=== PATIENT | female | born 1980 | race Caucasian/White ===

== ENCOUNTER 2021-03-10 16:38 | Inpatient (IN) | payer OTHER ==
[~2021-03-10] VITALS: Ht 177.8 cm; Wt 93.4 kg
[2021-03-10 17:45] LABS: GLUCOSE,POINT OF CARE 371 MG/DL (70-110)
[2021-03-10] MEDS ORDERED: 0.9% SODIUM CHLORIDE 10 ML SYRINGE IVP PRN (18:00)
[2021-03-10] MEDS ORDERED: LISI-892 PO (18:13)
[2021-03-10] MEDS ORDERED: INSLAN SQ (18:13)
[2021-03-10] MEDS ORDERED: GABA-1181 PO (18:13)
[2021-03-10] MEDS ORDERED: METF-960 PO (18:13)
[2021-03-10 18:20] LABS: EOSINOPHILS % (AUTO) 2.5 % (1.0-6.0); HEMATOCRIT 30.6 % (36-46); HEMOGLOBIN 9.7 g/dL (12.0-16.0); LYMPHOCYTES % (AUTO) 25.3 % (22.0-44.0); MEAN CORPUSCULAR HEMOGLOBIN 23.5 pg (26.0-34.0); MEAN CORPUSCULAR HGB CONC 31.6 G/dL (31.0-37.0); MEAN CORPUSCULAR VOLUME 74 fL (80-100); MONOCYTES # (AUTO) 0.6 K/uL (0.1-1.0); MONOCYTES % (AUTO) 7.2 % (2.0-9.0); NEUTROPHILS # (AUTO) 5.2 K/uL (1.8-7.7); PLATELET COUNT (AUTO) 325 K/uL (150-450); RED BLOOD CELL COUNT(AUTO) 4.11 MIL/uL (4.00-5.20); RED CELL DISTRIBUTION WIDTH 15.7 % (11.5-14.5)
[2021-03-10 18:21] LABS: COVID AG,FIA SOURCE NASOPHARYNGEAL
[2021-03-10 18:27] LABS: CALCIUM, TOTAL 8.8 mg/dL (8.8-10.5); CREATININE 1.23 mg/dL (0.60-1.30); POTASSIUM 3.9 mmol/L (3.5-5.1)
[2021-03-10 18:32] LABS: PROTHROMBIN TIME 10.8 SEC (9.4-11.6)
[2021-03-10 18:33] LABS: ALBUMIN 3.1 g/dL (3.4-5.0); BILIRUBIN,TOTAL 0.2 mg/dL (0.1-1.0); TOTAL PROTEIN, SERUM 8.7 g/dL (6.4-8.2)
[2021-03-10] MEDS ORDERED: HYDROCODONE/ACETAMINOPHEN 10-325 MG TABLET PO ONE (19:15)
[2021-03-10 19:32] LABS: LACTIC ACID 0.8 mmol/L (0.4-2.0)
[2021-03-10] MEDS ORDERED: PIPERACILLIN/TAZO 3.375 GM/D5W 50 ML IV ONE (20:15)
[2021-03-10] MEDS ORDERED: VANCOMYCIN HCL 1 GM/D5% WATER 200 ML IV ONE (20:15)
[2021-03-10] MEDS ORDERED: ONDANSETRON HCL 4 MG/2 ML VIAL IVP PRN ×2 (20:45)
[2021-03-10] MEDS ORDERED: DEXTROSE 50%-WATER 25 GM/50 ML SYRINGE IVP PRN (20:45)
[2021-03-10] MEDS ORDERED: ACETAMINOPHEN 325 MG TABLET PO PRN (20:45)
[2021-03-10] MEDS: INSULIN GLARGINE,HUM.REC.ANLOG 100 UNITS/ML SQ SCH ×2 (21:00→22:34)
[2021-03-10 21:04] LABS: % IRON SATURATION 8.5 % (22-44)
[2021-03-10] MEDS: SODIUM CHLORIDE 0.9% 2,850 ML IV SCH (22:14)
[2021-03-10] MEDS: INSULIN LISPRO 100 UNITS/ML SQ PRN (22:35)
[2021-03-10 22:45] VITALS: BP 101/53
[2021-03-10 22:51] LABS: GLUCOMETER DEV NAME(LOC) 6N.1; GLUCOSE,POINT OF CARE 399 MG/DL (70-110)
[2021-03-10] MEDS: MORPHINE SULFATE 2 MG/ML SYRINGE IVP PRN (23:25)
[2021-03-11] MEDS: CLINDAMYCIN 600 MG/D5% WATER 50 ML IV SCH ×3 (00:10→16:49)
[2021-03-11] MEDS: HEPARIN SODIUM,PORCINE 5,000 UNITS/ML VIAL SQ SCH ×4 (00:10→23:23)
[2021-03-11] MEDS ORDERED: VANCOMYCIN HCL 1 GM/D5% WATER 200 ML IV ONE (01:30)
[2021-03-11 02:14] LABS: GLUCOMETER DEV NAME(LOC) 6S.1; GLUCOSE,POINT OF CARE 168 MG/DL (70-110)
[2021-03-11] MEDS: PIPERACILLIN/TAZO 3.375 GM/D5W 50 ML IV SCH ×4 (04:07→22:12)
[2021-03-11 04:45] VITALS: BP 113/71
[2021-03-11] MEDS: MORPHINE SULFATE 2 MG/ML SYRINGE IVP PRN ×5 (04:57→19:59)
[2021-03-11 06:39] LABS: BASOPHILS % (AUTO) 1.2 % (0.0-2.0); EOSINOPHILS % (AUTO) 4.5 % (1.0-6.0); HEMATOCRIT 27.4 % (36-46); HEMOGLOBIN 8.7 g/dL (12.0-16.0); LYMPHOCYTES # (AUTO) 2.4 K/uL (1.0-4.8); LYMPHOCYTES % (AUTO) 34.3 % (22.0-44.0); MEAN CORPUSCULAR HEMOGLOBIN 23.7 pg (26.0-34.0); MEAN CORPUSCULAR HGB CONC 31.9 G/dL (31.0-37.0); MEAN CORPUSCULAR VOLUME 74 fL (80-100); MONOCYTES # (AUTO) 0.6 K/uL (0.1-1.0); MONOCYTES % (AUTO) 8.5 % (2.0-9.0); NEUTROPHILS # (AUTO) 3.6 K/uL (1.8-7.7); NEUTROPHILS % (AUTO) 51.5 % (40.0-70.0); PLATELET COUNT (AUTO) 295 K/uL (150-450); RED BLOOD CELL COUNT(AUTO) 3.69 MIL/uL (4.00-5.20); RED CELL DISTRIBUTION WIDTH 15.5 % (11.5-14.5)
[2021-03-11 06:48] LABS: GLUCOMETER DEV NAME(LOC) 6S.1; GLUCOSE,POINT OF CARE 204 MG/DL (70-110)
[2021-03-11 07:11] LABS: ALBUMIN 2.4 g/dL (3.4-5.0); BILIRUBIN,TOTAL 0.3 mg/dL (0.1-1.0); CALCIUM, TOTAL 8.1 mg/dL (8.8-10.5); CREATININE 1.07 mg/dL (0.60-1.30); POTASSIUM 3.8 mmol/L (3.5-5.1); TOTAL PROTEIN, SERUM 7.1 g/dL (6.4-8.2)
[2021-03-11 07:30] VITALS: BP 115/64
[2021-03-11] MEDS: ACETAMINOPHEN 325 MG TABLET PO PRN (08:19)
[2021-03-11] MEDS: VANCOMYCIN HCL 1 GM/D5% WATER 200 ML IV SCH ×2 (09:11→19:59)
[2021-03-11] MEDS ORDERED: GADOTERATE MEGLUMINE 10 MMOL/20 ML VIAL IVP ONE (09:39)
[2021-03-11] MEDS: INSULIN LISPRO 100 UNITS/ML SQ PRN ×3 (11:44→21:33)
[2021-03-11 14:33] LABS: GLUCOMETER DEV NAME(LOC) 6S.1; GLUCOSE,POINT OF CARE 207 MG/DL (70-110)
[2021-03-11 15:40] VITALS: BP 113/68
[2021-03-11 17:30] LABS: GLUCOMETER DEV NAME(LOC) 6S.1; GLUCOSE,POINT OF CARE 283 MG/DL (70-110)
[2021-03-11 19:02] LABS: C-REACTIVE PROTEIN QUANT 2.58 mg/dL (0.00-0.30)
[2021-03-11 20:25] VITALS: BP 114/58
[2021-03-11] MEDS: GABAPENTIN 400 MG CAPSULE PO SCH (21:27)
[2021-03-11] MEDS: INSULIN GLARGINE,HUM.REC.ANLOG 100 UNITS/ML SQ SCH (21:33)
[2021-03-11] MEDS: SODIUM CHLORIDE 0.9% 2,850 ML IV SCH (22:16)
[2021-03-11 22:22] LABS: GLUCOMETER DEV NAME(LOC) 6N.1; GLUCOSE,POINT OF CARE 299 MG/DL (70-110)
[2021-03-12] MEDS: CLINDAMYCIN 600 MG/D5% WATER 50 ML IV SCH ×2 (00:01→08:05)
[2021-03-12 03:01] VITALS: BP 131/55
[2021-03-12] MEDS: MORPHINE SULFATE 2 MG/ML SYRINGE IVP PRN ×4 (03:06→23:28)
[2021-03-12] MEDS: PIPERACILLIN/TAZO 3.375 GM/D5W 50 ML IV SCH (03:06)
[2021-03-12 05:09] LABS: GLUCOMETER DEV NAME(LOC) 6S.1; GLUCOSE,POINT OF CARE 228 MG/DL (70-110)
[2021-03-12 06:36] LABS: ANION GAP 7 mmol/L (8-16); CALCIUM, TOTAL 8.4 mg/dL (8.8-10.5); CARBON DIOXIDE 27 mmol/L (22-29); CHLORIDE 102 mmol/L (98-107); CREATININE 0.99 mg/dL (0.60-1.30); GLOMERULAR FILTR. RATE CALC > 60 mL/min (>60); GLUCOSE,RANDOM 215 mg/dL (70-110); POTASSIUM 4.1 mmol/L (3.5-5.1); SODIUM SERUM 136 mmol/L (136-145); UREA NITROGEN, BLOOD 18 mg/dL (7-18); VANCOMYCIN,RANDOM 23.6 mcg/mL (25.0-50.0)
[2021-03-12 06:52] LABS: GLUCOMETER DEV NAME(LOC) 6N.1; GLUCOSE,POINT OF CARE 204 MG/DL (70-110)
[2021-03-12] MEDS: HEPARIN SODIUM,PORCINE 5,000 UNITS/ML VIAL SQ SCH ×4 (08:00→23:28)
[2021-03-12] MEDS: GABAPENTIN 400 MG CAPSULE PO SCH ×2 (08:06→20:49)
[2021-03-12] MEDS: MUPIROCIN CALCIUM 2% 22 GM OINTMENT TP SCH (08:07)
[2021-03-12 08:38] VITALS: BP 98/45
[2021-03-12] MEDS ORDERED: *CLINICAL-MEROPENEM DOSING CLINICAL ONE (09:00)
[2021-03-12] MEDS: MEROPENEM 1 GM in SODIUM CHLORIDE 0.9% 100 ML IV SCH ×3 (09:16→22:19)
[2021-03-12] MEDS: INSULIN LISPRO 100 UNITS/ML SQ PRN ×3 (11:56→20:50)
[2021-03-12 13:09] LABS: GLUCOMETER DEV NAME(LOC) 6S.1; GLUCOSE,POINT OF CARE 188 MG/DL (70-110)
[2021-03-12] MEDS: HYDROCODONE/ACETAMINOPHEN 5-325 MG TABLET PO PRN ×2 (16:01→22:09)
[2021-03-12 19:34] LABS: GLUCOMETER DEV NAME(LOC) 6S.1; GLUCOSE,POINT OF CARE 255 MG/DL (70-110)
[2021-03-12 19:49] VITALS: BP 104/57
[2021-03-12] MEDS: INSULIN GLARGINE,HUM.REC.ANLOG 100 UNITS/ML SQ SCH (20:49)
[2021-03-12 22:42] LABS: GLUCOMETER DEV NAME(LOC) 6N.1; GLUCOSE,POINT OF CARE 239 MG/DL (70-110)
[2021-03-13] MEDS: MORPHINE SULFATE 2 MG/ML SYRINGE IVP PRN ×4 (03:04→19:57)
[2021-03-13 05:17] VITALS: BP 102/59
[2021-03-13 06:03] LABS: CALCIUM, TOTAL 8.4 mg/dL (8.8-10.5); CREATININE 1.11 mg/dL (0.60-1.30); POTASSIUM 4.4 mmol/L (3.5-5.1)
[2021-03-13] MEDS: INSULIN LISPRO 100 UNITS/ML SQ PRN ×4 (06:07→21:56)
[2021-03-13 07:43] LABS: GLUCOMETER DEV NAME(LOC) 6S.1; GLUCOSE,POINT OF CARE 218 MG/DL (70-110)
[2021-03-13 09:04] VITALS: BP 95/46
[2021-03-13] MEDS: HEPARIN SODIUM,PORCINE 5,000 UNITS/ML VIAL SQ SCH ×2 (09:26→16:06)
[2021-03-13] MEDS: MEROPENEM 1 GM in SODIUM CHLORIDE 0.9% 100 ML IV SCH ×2 (09:26→17:19)
[2021-03-13] MEDS: MUPIROCIN CALCIUM 2% 22 GM OINTMENT TP SCH (09:27)
[2021-03-13] MEDS: GABAPENTIN 400 MG CAPSULE PO SCH ×2 (09:27→19:45)
[2021-03-13] MEDS: HYDROCODONE/ACETAMINOPHEN 5-325 MG TABLET PO PRN ×3 (09:45→23:07)
[2021-03-13 09:54] LABS: BASOPHILS % (AUTO) 0.9 % (0.0-2.0); EOSINOPHILS % (AUTO) 3.1 % (1.0-6.0); HEMATOCRIT 29.5 % (36-46); HEMOGLOBIN 9.2 g/dL (12.0-16.0); LYMPHOCYTES # (AUTO) 2.6 K/uL (1.0-4.8); MEAN CORPUSCULAR HEMOGLOBIN 23.5 pg (26.0-34.0); MEAN CORPUSCULAR HGB CONC 31.2 G/dL (31.0-37.0); MEAN CORPUSCULAR VOLUME 75 fL (80-100); MONOCYTES # (AUTO) 0.4 K/uL (0.1-1.0); MONOCYTES % (AUTO) 6.8 % (2.0-9.0); NEUTROPHILS # (AUTO) 2.7 K/uL (1.8-7.7); NEUTROPHILS % (AUTO) 45.2 % (40.0-70.0); PLATELET COUNT (AUTO) 280 K/uL (150-450); RED BLOOD CELL COUNT(AUTO) 3.92 MIL/uL (4.00-5.20); RED CELL DISTRIBUTION WIDTH 15.6 % (11.5-14.5)
[2021-03-13 12:28] LABS: GLUCOMETER DEV NAME(LOC) 6S.1; GLUCOSE,POINT OF CARE 185 MG/DL (70-110)
[2021-03-13 18:17] LABS: GLUCOMETER DEV NAME(LOC) 6S.1; GLUCOSE,POINT OF CARE 217 MG/DL (70-110)
[2021-03-13 19:48] VITALS: BP 122/74
[2021-03-13] MEDS: INSULIN GLARGINE,HUM.REC.ANLOG 100 UNITS/ML SQ SCH (21:55)
[2021-03-14] MEDS: MEROPENEM 1 GM in SODIUM CHLORIDE 0.9% 100 ML IV SCH ×4 (00:27→23:26)
[2021-03-14] MEDS: HEPARIN SODIUM,PORCINE 5,000 UNITS/ML VIAL SQ SCH ×4 (00:27→23:26)
[2021-03-14] MEDS: MELATONIN 3 MG TABLET PO PRN ×2 (00:27→22:45)
[2021-03-14] MEDS: MORPHINE SULFATE 2 MG/ML SYRINGE IVP PRN ×5 (00:36→20:39)
[2021-03-14 00:40] VITALS: BP 112/62
[2021-03-14 05:00] VITALS: BP 100/59
[2021-03-14 05:37] LABS: GLUCOMETER DEV NAME(LOC) 6N.1; GLUCOSE,POINT OF CARE 314 MG/DL (70-110)
[2021-03-14] MEDS: INSULIN LISPRO 100 UNITS/ML SQ PRN ×4 (06:12→21:34)
[2021-03-14] MEDS: HYDROCODONE/ACETAMINOPHEN 5-325 MG TABLET PO PRN ×4 (06:16→23:27)
[2021-03-14] MEDS: GABAPENTIN 400 MG CAPSULE PO SCH ×2 (08:46→20:38)
[2021-03-14] MEDS: MUPIROCIN CALCIUM 2% 22 GM OINTMENT TP SCH (09:00)
[2021-03-14 09:25] LABS: GLUCOMETER DEV NAME(LOC) 6S.1; GLUCOSE,POINT OF CARE 179 MG/DL (70-110)
[2021-03-14] MEDS ORDERED: MAGNESIUM HYDROXIDE SUSPENSION 30 ML UDCUP PO PRN (10:00)
[2021-03-14] MEDS: DOCUSATE SODIUM 100 MG CAPSULE PO SCH ×2 (10:09→20:38)
[2021-03-14 11:56] LABS: GLUCOMETER DEV NAME(LOC) 6S.1; GLUCOSE,POINT OF CARE 154 MG/DL (70-110)
[2021-03-14 15:40] VITALS: BP 118/67
[2021-03-14] MEDS ORDERED: VANCOMYCIN HCL 1.5 GM in DEXTROSE 5%-WATER 250 ML IV ONE (18:00)
[2021-03-14 19:52] VITALS: BP 107/69
[2021-03-14 20:18] LABS: GLUCOMETER DEV NAME(LOC) 6N.1; GLUCOSE,POINT OF CARE 203 MG/DL (70-110)
[2021-03-14] MEDS: INSULIN GLARGINE,HUM.REC.ANLOG 100 UNITS/ML SQ SCH (21:32)
[2021-03-14 21:54] LABS: GLUCOMETER DEV NAME(LOC) 6S.1; GLUCOSE,POINT OF CARE 197 MG/DL (70-110)
[2021-03-15 04:10] VITALS: BP 100/61
[2021-03-15] MEDS: MORPHINE SULFATE 2 MG/ML SYRINGE IVP PRN ×3 (04:10→19:39)
[2021-03-15 04:37] LABS: GLUCOMETER DEV NAME(LOC) 6N.1; GLUCOSE,POINT OF CARE 223 MG/DL (70-110)
[2021-03-15] MEDS: HYDROCODONE/ACETAMINOPHEN 5-325 MG TABLET PO PRN ×4 (06:10→23:13)
[2021-03-15] MEDS: INSULIN LISPRO 100 UNITS/ML SQ PRN ×4 (06:15→19:38)
[2021-03-15 06:57] LABS: ANION GAP 5 mmol/L (8-16); CALCIUM, TOTAL 8.5 mg/dL (8.8-10.5); CARBON DIOXIDE 30 mmol/L (22-29); CHLORIDE 99 mmol/L (98-107); CREATININE 0.87 mg/dL (0.60-1.30); GLOMERULAR FILTR. RATE CALC > 60 mL/min (>60); GLUCOSE,RANDOM 261 mg/dL (70-110); POTASSIUM 4.2 mmol/L (3.5-5.1); SODIUM SERUM 134 mmol/L (136-145); UREA NITROGEN, BLOOD 20 mg/dL (7-18)
[2021-03-15] MEDS: HEPARIN SODIUM,PORCINE 5,000 UNITS/ML VIAL SQ SCH ×3 (07:16→23:13)
[2021-03-15] MEDS: VANCOMYCIN HCL 1.25 GM in DEXTROSE 5%-WATER 250 ML IV SCH ×2 (07:16→19:37)
[2021-03-15 07:20] VITALS: BP 109/64
[2021-03-15] MEDS: GABAPENTIN 400 MG CAPSULE PO SCH ×2 (08:46→19:56)
[2021-03-15] MEDS: DOCUSATE SODIUM 100 MG CAPSULE PO SCH ×2 (08:46→19:37)
[2021-03-15 08:56] LABS: C-REACTIVE PROTEIN QUANT 0.34 mg/dL (0.00-0.30)
[2021-03-15] MEDS: MUPIROCIN CALCIUM 2% 22 GM OINTMENT TP SCH (09:00)
[2021-03-15] MEDS: MEROPENEM 1 GM in SODIUM CHLORIDE 0.9% 100 ML IV SCH ×2 (10:59→16:57)
[2021-03-15] MEDS ORDERED: MORPHINE SULFATE 2 MG/ML SYRINGE IM ONE (14:15)
[2021-03-15 14:20] LABS: GLUCOMETER DEV NAME(LOC) 6S.1; GLUCOSE,POINT OF CARE 282 MG/DL (70-110)
[2021-03-15 15:06] VITALS: BP 106/55
[2021-03-15 19:35] VITALS: BP 100/67
[2021-03-15] MEDS: MELATONIN 3 MG TABLET PO PRN (19:37)
[2021-03-15] MEDS: INSULIN GLARGINE,HUM.REC.ANLOG 100 UNITS/ML SQ SCH (19:38)
[2021-03-15] MEDS ORDERED: SODIUM CHLORIDE 0.9% 500 ML IV ONE (21:51)
[2021-03-15 23:49] LABS: GLUCOMETER DEV NAME(LOC) 6N.1; GLUCOSE,POINT OF CARE 180 MG/DL (70-110)
[2021-03-15 23:49] LABS: GLUCOMETER DEV NAME(LOC) 6S.1; GLUCOSE,POINT OF CARE 202 MG/DL (70-110)
[2021-03-16] MEDS: MEROPENEM 1 GM in SODIUM CHLORIDE 0.9% 100 ML IV SCH ×3 (00:37→20:07)
[2021-03-16] MEDS: MORPHINE SULFATE 2 MG/ML SYRINGE IVP PRN ×5 (00:45→19:04)
[2021-03-16 03:35] VITALS: BP 95/62
[2021-03-16] MEDS: INSULIN LISPRO 100 UNITS/ML SQ PRN ×3 (05:37→17:55)
[2021-03-16] MEDS ORDERED: RINGERS SOLUTION,LACTATED 1,000 ML IV ONE (05:48)
[2021-03-16 05:59] LABS: GLUCOMETER DEV NAME(LOC) 6N.1; GLUCOSE,POINT OF CARE 197 MG/DL (70-110)
[2021-03-16] MEDS ORDERED: SODIUM CL IRRIG SOLN BAG 3,000 ML IRRIG ONE (06:27)
[2021-03-16] MEDS ORDERED: BUPIVACAINE HCL/PF 0.5% 30 ML VIAL ONE (06:28)
[2021-03-16] MEDS ORDERED: LIDOCAINE/PF 1% 30 ML VIAL ONE (06:28)
[2021-03-16] MEDS ORDERED: BACITRACIN 50,000 UNITS/VIAL ONE (06:29)
[2021-03-16 06:35] LABS: EOSINOPHILS % (AUTO) 4.2 % (1.0-6.0); HEMATOCRIT 31.7 % (36-46); LYMPHOCYTES # (AUTO) 3.2 K/uL (1.0-4.8); LYMPHOCYTES % (AUTO) 44.5 % (22.0-44.0); MEAN CORPUSCULAR HEMOGLOBIN 23.6 pg (26.0-34.0); MEAN CORPUSCULAR HGB CONC 31.6 G/dL (31.0-37.0); MEAN CORPUSCULAR VOLUME 75 fL (80-100); MONOCYTES # (AUTO) 0.5 K/uL (0.1-1.0); MONOCYTES % (AUTO) 6.9 % (2.0-9.0); NEUTROPHILS # (AUTO) 3.1 K/uL (1.8-7.7); NEUTROPHILS % (AUTO) 43.4 % (40.0-70.0); PLATELET COUNT (AUTO) 243 K/uL (150-450); RED BLOOD CELL COUNT(AUTO) 4.26 MIL/uL (4.00-5.20); RED CELL DISTRIBUTION WIDTH 15.7 % (11.5-14.5)
[2021-03-16 06:49] LABS: ANION GAP 5 mmol/L (8-16); CALCIUM, TOTAL 8.6 mg/dL (8.8-10.5); CARBON DIOXIDE 31 mmol/L (22-29); CHLORIDE 99 mmol/L (98-107); CREATININE 0.85 mg/dL (0.60-1.30); GLOMERULAR FILTR. RATE CALC > 60 mL/min (>60); GLUCOSE,RANDOM 182 mg/dL (70-110); POTASSIUM 4.4 mmol/L (3.5-5.1); SODIUM SERUM 135 mmol/L (136-145); UREA NITROGEN, BLOOD 22 mg/dL (7-18)
[2021-03-16] MEDS ORDERED: PROPOFOL 1000 MG/ISO-OSM 100 ML IV ONE (07:14)
[2021-03-16] MEDS ORDERED: FentaNYL CITRATE PF 100 MCG/2 ML VIAL IVP PRN (07:30)
[2021-03-16] MEDS ORDERED: HYDROmorphone 2 MG/ML VIAL IVP PRN (07:30)
[2021-03-16] MEDS ORDERED: BACITRACIN 28 GM OINTMENT TP ONE (08:14)
[2021-03-16] MEDS: MUPIROCIN CALCIUM 2% 22 GM OINTMENT TP SCH (09:00)
[2021-03-16 09:04] VITALS: BP 108/74
[2021-03-16] MEDS: VANCOMYCIN HCL 1.25 GM in DEXTROSE 5%-WATER 250 ML IV SCH ×2 (09:06→20:56)
[2021-03-16] MEDS: HEPARIN SODIUM,PORCINE 5,000 UNITS/ML VIAL SQ SCH ×3 (09:08→23:36)
[2021-03-16] MEDS: DOCUSATE SODIUM 100 MG CAPSULE PO SCH ×2 (09:13→21:04)
[2021-03-16] MEDS: GABAPENTIN 400 MG CAPSULE PO SCH ×2 (09:13→21:04)
[2021-03-16] MEDS: OXYGEN THERAPY IH SCH ×2 (09:20→19:58)
[2021-03-16] MEDS: HYDROCODONE/ACETAMINOPHEN 5-325 MG TABLET PO PRN ×2 (10:51→21:04)
[2021-03-16 20:07] LABS: GLUCOMETER DEV NAME(LOC) 6N.1; GLUCOSE,POINT OF CARE 225 MG/DL (70-110)
[2021-03-16 20:56] LABS: GLUCOMETER DEV NAME(LOC) 6S.1; GLUCOSE,POINT OF CARE 148 MG/DL (70-110)
[2021-03-16] MEDS: INSULIN GLARGINE,HUM.REC.ANLOG 100 UNITS/ML SQ SCH (21:02)
[2021-03-16] MEDS: DiphenhydrAMINE HCL 50 MG/ML VIAL IVP PRN (21:54)
[2021-03-16] MEDS: MORPHINE SULFATE 4 MG/ML SYRINGE IVP PRN (21:55)
[2021-03-16 23:35] LABS: GLUCOMETER DEV NAME(LOC) 6S.1; GLUCOSE,POINT OF CARE 127 MG/DL (70-110)
[2021-03-17] MEDS: MORPHINE SULFATE 4 MG/ML SYRINGE IVP PRN ×3 (03:32→11:28)
[2021-03-17] MEDS: MEROPENEM 1 GM in SODIUM CHLORIDE 0.9% 100 ML IV SCH ×3 (03:38→20:34)
[2021-03-17] MEDS: DiphenhydrAMINE HCL 50 MG/ML VIAL IVP PRN ×2 (03:38→11:37)
[2021-03-17] MEDS ORDERED: FentaNYL CITRATE PF 100 MCG/2 ML VIAL IVP ONE (03:47)
[2021-03-17] MEDS ORDERED: MIDAZOLAM HCL 2 MG/2 ML VIAL IVP ONE (03:47)
[2021-03-17] MEDS ORDERED: SODIUM CHLORIDE 0.9% 100 ML ONE (03:47)
[2021-03-17] MEDS ORDERED: PROPOFOL 1% 20 ML VIAL IVP ONE (03:47)
[2021-03-17] MEDS ORDERED: ONDANSETRON HCL 4 MG/2 ML VIAL IVP ONE (03:47)
[2021-03-17] MEDS ORDERED: LIDOCAINE/PF 2% 5 ML SYRINGE IVP ONE (03:47)
[2021-03-17 06:27] LABS: BASOPHILS % (AUTO) 0.7 % (0.0-2.0); HEMATOCRIT 28.3 % (36-46); HEMOGLOBIN 9.1 g/dL (12.0-16.0); LYMPHOCYTES # (AUTO) 2.1 K/uL (1.0-4.8); LYMPHOCYTES % (AUTO) 26.8 % (22.0-44.0); MEAN CORPUSCULAR HEMOGLOBIN 24.1 pg (26.0-34.0); MEAN CORPUSCULAR HGB CONC 32.1 G/dL (31.0-37.0); MEAN CORPUSCULAR VOLUME 75 fL (80-100); MONOCYTES # (AUTO) 0.8 K/uL (0.1-1.0); MONOCYTES % (AUTO) 9.7 % (2.0-9.0); NEUTROPHILS # (AUTO) 4.7 K/uL (1.8-7.7); NEUTROPHILS % (AUTO) 58.8 % (40.0-70.0); PLATELET COUNT (AUTO) 185 K/uL (150-450); RED BLOOD CELL COUNT(AUTO) 3.78 MIL/uL (4.00-5.20); RED CELL DISTRIBUTION WIDTH 16.2 % (11.5-14.5)
[2021-03-17 06:36] LABS: ANION GAP 5 mmol/L (8-16); CALCIUM, TOTAL 8.7 mg/dL (8.8-10.5); CARBON DIOXIDE 31 mmol/L (22-29); CHLORIDE 99 mmol/L (98-107); CREATININE 0.98 mg/dL (0.60-1.30); GLOMERULAR FILTR. RATE CALC > 60 mL/min (>60); GLUCOSE,RANDOM 148 mg/dL (70-110); POTASSIUM 4.5 mmol/L (3.5-5.1); SODIUM SERUM 135 mmol/L (136-145); UREA NITROGEN, BLOOD 22 mg/dL (7-18)
[2021-03-17 06:59] LABS: GLUCOMETER DEV NAME(LOC) 6S.1; GLUCOSE,POINT OF CARE 137 MG/DL (70-110)
[2021-03-17] MEDS ORDERED: SODIUM CHLORIDE 0.9% IRRIG BTL 1,000 ML IRRIG ONE (07:43)
[2021-03-17] MEDS: OXYGEN THERAPY IH SCH ×2 (08:00→20:00)
[2021-03-17] MEDS: DOCUSATE SODIUM 100 MG CAPSULE PO SCH ×2 (08:18→20:31)
[2021-03-17] MEDS: HEPARIN SODIUM,PORCINE 5,000 UNITS/ML VIAL SQ SCH ×3 (08:18→23:42)
[2021-03-17] MEDS: GABAPENTIN 400 MG CAPSULE PO SCH ×2 (08:19→20:32)
[2021-03-17] MEDS: VANCOMYCIN HCL 1.25 GM in DEXTROSE 5%-WATER 250 ML IV SCH ×2 (08:19→21:43)
[2021-03-17] MEDS: MUPIROCIN CALCIUM 2% 22 GM OINTMENT TP SCH (08:19)
[2021-03-17 08:40] VITALS: BP 98/64
[2021-03-17] MEDS: INSULIN LISPRO 100 UNITS/ML SQ PRN (11:31)
[2021-03-17 12:21] LABS: GLUCOMETER DEV NAME(LOC) 6N.1; GLUCOSE,POINT OF CARE 199 MG/DL (70-110)
[2021-03-17] MEDS ORDERED: MORPHINE SULFATE 4 MG/ML SYRINGE IVP PRN (13:15)
[2021-03-17] MEDS: IBUPROFEN 400 MG TABLET PO SCH ×2 (15:48→23:43)
[2021-03-17] MEDS: OxyCODONE HCL/ACETAMINOPHEN 10-325 MG TABLET PO PRN ×2 (15:48→21:46)
[2021-03-17 17:59] LABS: GLUCOMETER DEV NAME(LOC) 6S.1; GLUCOSE,POINT OF CARE 137 MG/DL (70-110)
[2021-03-17 20:08] VITALS: BP 93/57
[2021-03-17] MEDS: MELATONIN 3 MG TABLET PO PRN (20:42)
[2021-03-17] MEDS: INSULIN GLARGINE,HUM.REC.ANLOG 100 UNITS/ML SQ SCH (20:49)
[2021-03-18 00:03] VITALS: BP 91/55
[2021-03-18 04:00] VITALS: BP 94/59
[2021-03-18] MEDS: OxyCODONE HCL/ACETAMINOPHEN 10-325 MG TABLET PO PRN ×4 (04:16→23:17)
[2021-03-18] MEDS: MEROPENEM 1 GM in SODIUM CHLORIDE 0.9% 100 ML IV SCH ×3 (04:16→20:11)
[2021-03-18 06:11] LABS: GLUCOMETER DEV NAME(LOC) 6S.1; GLUCOSE,POINT OF CARE 195 MG/DL (70-110)
[2021-03-18 06:46] LABS: ANION GAP 3 mmol/L (8-16); CALCIUM, TOTAL 8.4 mg/dL (8.8-10.5); CARBON DIOXIDE 31 mmol/L (22-29); CHLORIDE 99 mmol/L (98-107); CREATININE 0.94 mg/dL (0.60-1.30); GLOMERULAR FILTR. RATE CALC > 60 mL/min (>60); GLUCOSE,RANDOM 139 mg/dL (70-110); POTASSIUM 4.2 mmol/L (3.5-5.1); SODIUM SERUM 133 mmol/L (136-145); UREA NITROGEN, BLOOD 25 mg/dL (7-18)
[2021-03-18 06:46] LABS: GLUCOMETER DEV NAME(LOC) 6S.1; GLUCOSE,POINT OF CARE 131 MG/DL (70-110)
[2021-03-18 07:55] VITALS: BP 105/59
[2021-03-18] MEDS: OXYGEN THERAPY IH SCH (08:00)
[2021-03-18] MEDS: DOCUSATE SODIUM 100 MG CAPSULE PO SCH ×2 (08:16→20:10)
[2021-03-18] MEDS: GABAPENTIN 400 MG CAPSULE PO SCH ×2 (08:17→20:10)
[2021-03-18] MEDS: IBUPROFEN 400 MG TABLET PO SCH ×3 (08:17→23:17)
[2021-03-18] MEDS: HEPARIN SODIUM,PORCINE 5,000 UNITS/ML VIAL SQ SCH ×3 (08:18→23:17)
[2021-03-18] MEDS: VANCOMYCIN HCL 1.25 GM in DEXTROSE 5%-WATER 250 ML IV SCH ×2 (08:19→20:42)
[2021-03-18] MEDS: MUPIROCIN CALCIUM 2% 22 GM OINTMENT TP SCH (09:00)
[2021-03-18] MEDS: INSULIN LISPRO 100 UNITS/ML SQ PRN ×3 (12:00→20:10)
[2021-03-18 13:33] LABS: GLUCOMETER DEV NAME(LOC) 6N.1; GLUCOSE,POINT OF CARE 213 MG/DL (70-110)
[2021-03-18 18:27] LABS: GLUCOMETER DEV NAME(LOC) 6N.1; GLUCOSE,POINT OF CARE 183 MG/DL (70-110)
[2021-03-18 19:30] VITALS: BP 91/48
[2021-03-18] MEDS: INSULIN GLARGINE,HUM.REC.ANLOG 100 UNITS/ML SQ SCH (20:11)
[2021-03-18] MEDS: MELATONIN 3 MG TABLET PO PRN (20:41)
[2021-03-18 20:51] LABS: GLUCOMETER DEV NAME(LOC) 6N.1; GLUCOSE,POINT OF CARE 163 MG/DL (70-110)
[2021-03-19] MEDS ORDERED: SODIUM CHLORIDE 0.9% 500 ML IV ONE (03:12)
[2021-03-19] MEDS: MEROPENEM 1 GM in SODIUM CHLORIDE 0.9% 100 ML IV SCH ×3 (03:31→19:41)
[2021-03-19 04:00] VITALS: BP 89/56
[2021-03-19 05:10] VITALS: BP 90/55
[2021-03-19] MEDS: OxyCODONE HCL/ACETAMINOPHEN 10-325 MG TABLET PO PRN ×4 (05:13→21:59)
[2021-03-19] MEDS: INSULIN LISPRO 100 UNITS/ML SQ PRN ×4 (05:24→20:36)
[2021-03-19 06:37] LABS: CALCIUM, TOTAL 8.1 mg/dL (8.8-10.5); CREATININE 1.06 mg/dL (0.60-1.30); POTASSIUM 4.7 mmol/L (3.5-5.1)
[2021-03-19 06:40] LABS: GLUCOMETER DEV NAME(LOC) 6S.1; GLUCOSE,POINT OF CARE 185 MG/DL (70-110)
[2021-03-19] MEDS: OXYGEN THERAPY IH SCH (08:00)
[2021-03-19 08:22] VITALS: BP 94/58
[2021-03-19] MEDS: VANCOMYCIN HCL 1.25 GM in DEXTROSE 5%-WATER 250 ML IV SCH ×2 (08:24→20:34)
[2021-03-19] MEDS: GABAPENTIN 400 MG CAPSULE PO SCH ×2 (08:24→20:34)
[2021-03-19] MEDS: DOCUSATE SODIUM 100 MG CAPSULE PO SCH ×2 (08:24→20:34)
[2021-03-19] MEDS: IBUPROFEN 400 MG TABLET PO SCH ×3 (08:24→23:37)
[2021-03-19] MEDS: HEPARIN SODIUM,PORCINE 5,000 UNITS/ML VIAL SQ SCH ×3 (08:24→23:37)
[2021-03-19] MEDS: MUPIROCIN CALCIUM 2% 22 GM OINTMENT TP SCH (08:24)
[2021-03-19] MEDS ORDERED: DiphenhydrAMINE HCL 25 MG CAPSULE PO ONE (12:00)
[2021-03-19 14:24] LABS: GLUCOMETER DEV NAME(LOC) 6N.1; GLUCOSE,POINT OF CARE 210 MG/DL (70-110)
[2021-03-19 19:28] LABS: GLUCOMETER DEV NAME(LOC) 6S.1; GLUCOSE,POINT OF CARE 172 MG/DL (70-110)
[2021-03-19 20:03] VITALS: BP 108/71
[2021-03-19] MEDS: MELATONIN 3 MG TABLET PO PRN (20:34)
[2021-03-19] MEDS: INSULIN GLARGINE,HUM.REC.ANLOG 100 UNITS/ML SQ SCH (20:35)
[2021-03-19 22:38] LABS: GLUCOMETER DEV NAME(LOC) 6N.1; GLUCOSE,POINT OF CARE 194 MG/DL (70-110)
[2021-03-20] MEDS: ACETAMINOPHEN 325 MG TABLET PO PRN (02:26)
[2021-03-20] MEDS: MEROPENEM 1 GM in SODIUM CHLORIDE 0.9% 100 ML IV SCH ×3 (03:25→19:46)
[2021-03-20 03:40] VITALS: BP 96/58
[2021-03-20] MEDS: OxyCODONE HCL/ACETAMINOPHEN 10-325 MG TABLET PO PRN ×4 (04:31→22:49)
[2021-03-20 06:07] LABS: CALCIUM, TOTAL 8.1 mg/dL (8.8-10.5); CREATININE 1.06 mg/dL (0.60-1.30); POTASSIUM 5.1 mmol/L (3.5-5.1)
[2021-03-20] MEDS: INSULIN LISPRO 100 UNITS/ML SQ PRN ×3 (06:17→20:52)
[2021-03-20 07:23] LABS: GLUCOMETER DEV NAME(LOC) 6S.1; GLUCOSE,POINT OF CARE 203 MG/DL (70-110)
[2021-03-20 07:52] VITALS: BP 104/68
[2021-03-20] MEDS: OXYGEN THERAPY IH SCH ×2 (08:00→20:00)
[2021-03-20] MEDS: GABAPENTIN 400 MG CAPSULE PO SCH ×2 (08:17→20:48)
[2021-03-20] MEDS: VANCOMYCIN HCL 1.25 GM in DEXTROSE 5%-WATER 250 ML IV SCH (08:17)
[2021-03-20] MEDS: HEPARIN SODIUM,PORCINE 5,000 UNITS/ML VIAL SQ SCH ×3 (08:17→23:02)
[2021-03-20] MEDS: IBUPROFEN 400 MG TABLET PO SCH ×2 (08:17→15:55)
[2021-03-20] MEDS: DOCUSATE SODIUM 100 MG CAPSULE PO SCH ×2 (08:17→20:48)
[2021-03-20] MEDS: MUPIROCIN CALCIUM 2% 22 GM OINTMENT TP SCH (10:30)
[2021-03-20 12:46] LABS: GLUCOMETER DEV NAME(LOC) 6S.1; GLUCOSE,POINT OF CARE 196 MG/DL (70-110)
[2021-03-20] MEDS ORDERED: BENZOCAINE/MENTHOL LOZENGE PO PRN (13:15)
[2021-03-20 16:12] VITALS: BP 108/62
[2021-03-20 19:34] LABS: GLUCOMETER DEV NAME(LOC) 6N.1; GLUCOSE,POINT OF CARE 117 MG/DL (70-110)
[2021-03-20 20:25] VITALS: BP 104/70
[2021-03-20] MEDS: VANCOMYCIN HCL 1 GM/D5% WATER 200 ML IV SCH (20:48)
[2021-03-20] MEDS: INSULIN GLARGINE,HUM.REC.ANLOG 100 UNITS/ML SQ SCH (20:50)
[2021-03-20 22:39] LABS: GLUCOMETER DEV NAME(LOC) 6S.1; GLUCOSE,POINT OF CARE 204 MG/DL (70-110)
[2021-03-20] MEDS: MELATONIN 3 MG TABLET PO PRN (22:51)
[2021-03-21] MEDS: MEROPENEM 1 GM in SODIUM CHLORIDE 0.9% 100 ML IV SCH ×3 (03:53→19:37)
[2021-03-21] MEDS: OxyCODONE HCL/ACETAMINOPHEN 10-325 MG TABLET PO PRN ×4 (05:19→23:25)
[2021-03-21 05:24] VITALS: BP 109/58
[2021-03-21 05:39] LABS: GLUCOMETER DEV NAME(LOC) 6S.1; GLUCOSE,POINT OF CARE 105 MG/DL (70-110)
[2021-03-21] MEDS: OXYGEN THERAPY IH SCH ×2 (08:00→20:00)
[2021-03-21 08:14] VITALS: BP 125/90
[2021-03-21] MEDS: IBUPROFEN 400 MG TABLET PO SCH ×3 (08:17→16:14)
[2021-03-21] MEDS: VANCOMYCIN HCL 1 GM/D5% WATER 200 ML IV SCH ×2 (08:17→20:15)
[2021-03-21] MEDS: DOCUSATE SODIUM 100 MG CAPSULE PO SCH ×2 (08:18→20:11)
[2021-03-21] MEDS: GABAPENTIN 400 MG CAPSULE PO SCH ×2 (08:18→20:12)
[2021-03-21] MEDS: HEPARIN SODIUM,PORCINE 5,000 UNITS/ML VIAL SQ SCH ×3 (08:18→23:24)
[2021-03-21] MEDS: MUPIROCIN CALCIUM 2% 22 GM OINTMENT TP SCH (08:18)
[2021-03-21 09:16] LABS: ANION GAP 2 mmol/L (8-16); CALCIUM, TOTAL 8.4 mg/dL (8.8-10.5); CARBON DIOXIDE 30 mmol/L (22-29); CHLORIDE 100 mmol/L (98-107); CREATININE 0.96 mg/dL (0.60-1.30); GLOMERULAR FILTR. RATE CALC > 60 mL/min (>60); GLUCOSE,RANDOM 191 mg/dL (70-110); POTASSIUM 4.6 mmol/L (3.5-5.1); SODIUM SERUM 132 mmol/L (136-145); UREA NITROGEN, BLOOD 21 mg/dL (7-18)
[2021-03-21] MEDS: INSULIN LISPRO 100 UNITS/ML SQ PRN ×2 (11:42→17:25)
[2021-03-21 14:52] LABS: GLUCOMETER DEV NAME(LOC) 6S.1; GLUCOSE,POINT OF CARE 188 MG/DL (70-110)
[2021-03-21 18:02] LABS: GLUCOMETER DEV NAME(LOC) 6S.1; GLUCOSE,POINT OF CARE 159 MG/DL (70-110)
[2021-03-21] MEDS ORDERED: SODIUM CHLORIDE 0.9% 500 ML IV ONE (20:05)
[2021-03-21] MEDS: MELATONIN 3 MG TABLET PO PRN (20:12)
[2021-03-21] MEDS: INSULIN GLARGINE,HUM.REC.ANLOG 100 UNITS/ML SQ SCH (20:26)
[2021-03-21 20:41] VITALS: BP 117/69
[2021-03-22] MEDS: MEROPENEM 1 GM in SODIUM CHLORIDE 0.9% 100 ML IV SCH ×2 (03:58→11:25)
[2021-03-22] MEDS: ACETAMINOPHEN 325 MG TABLET PO PRN (04:03)
[2021-03-22] MEDS: INSULIN LISPRO 100 UNITS/ML SQ PRN ×2 (06:09→12:19)
[2021-03-22] MEDS: OxyCODONE HCL/ACETAMINOPHEN 10-325 MG TABLET PO PRN ×2 (06:11→12:21)
[2021-03-22 06:16] LABS: GLUCOMETER DEV NAME(LOC) 6N.1; GLUCOSE,POINT OF CARE 107 MG/DL (70-110)
[2021-03-22 07:10] LABS: GLUCOMETER DEV NAME(LOC) 6S.1; GLUCOSE,POINT OF CARE 164 MG/DL (70-110)
[2021-03-22 07:48] LABS: ANION GAP 5 mmol/L (8-16); CALCIUM, TOTAL 8.3 mg/dL (8.8-10.5); CARBON DIOXIDE 30 mmol/L (22-29); CHLORIDE 103 mmol/L (98-107); CREATININE 0.93 mg/dL (0.60-1.30); GLOMERULAR FILTR. RATE CALC > 60 mL/min (>60); GLUCOSE,RANDOM 117 mg/dL (70-110); POTASSIUM 5.1 mmol/L (3.5-5.1); SODIUM SERUM 138 mmol/L (136-145); UREA NITROGEN, BLOOD 22 mg/dL (7-18)
[2021-03-22] MEDS: OXYGEN THERAPY IH SCH (08:00)
[2021-03-22 08:05] VITALS: BP 96/61
[2021-03-22] MEDS: GABAPENTIN 400 MG CAPSULE PO SCH (08:43)
[2021-03-22] MEDS: DOCUSATE SODIUM 100 MG CAPSULE PO SCH (08:43)
[2021-03-22] MEDS: IBUPROFEN 400 MG TABLET PO SCH ×3 (08:43→16:23)
[2021-03-22] MEDS: VANCOMYCIN HCL 1 GM/D5% WATER 200 ML IV SCH (08:44)
[2021-03-22] MEDS: HEPARIN SODIUM,PORCINE 5,000 UNITS/ML VIAL SQ SCH ×2 (08:44→16:23)
[2021-03-22] MEDS: MUPIROCIN CALCIUM 2% 22 GM OINTMENT TP SCH (11:25)
[2021-03-22 15:06] VITALS: BP 143/59
[2021-03-22 23:26] LABS: GLUCOMETER DEV NAME(LOC) 6S.1; GLUCOSE,POINT OF CARE 204 MG/DL (70-110)
== END 2021-03-22 17:00 | DRG 638 ==
LOC: EMS 16:38 → 6S 20:41
PROVIDERS: ADMIT Internal Medicine; ATTEND Internal Medicine
DX: E11.69 Type 2 diabetes mellitus with other specified complication (principal); E11.52 Type 2 diabetes mellitus with diabetic peripheral angiopathy with gangrene; L02.611 Cutaneous abscess of right foot; L03.115 Cellulitis of right lower limb; I10 Essential (primary) hypertension; F17.210 Nicotine dependence, cigarettes, uncomplicated; F15.90 Other stimulant use, unspecified, uncomplicated; E11.40 Type 2 diabetes mellitus with diabetic neuropathy, unspecified; E11.51 Type 2 diabetes mellitus with diabetic peripheral angiopathy without gangrene; Z20.822 Contact with and (suspected) exposure to COVID-19; E11.65 Type 2 diabetes mellitus with hyperglycemia; Z89.439 Acquired absence of unspecified foot; Z91.14 Patient's other noncompliance with medication regimen; Z91.19 Patient's noncompliance with other medical treatment and regimen; Z79.899 Other long term (current) drug therapy; Z79.4 Long term (current) use of insulin; Z90.49 Acquired absence of other specified parts of digestive tract; Z89.421 Acquired absence of other right toe(s)
CPT/HCPCS: 36245; 36569; 73723; 76937; 80048; 80053; 80202; 82962; 83540; 83550; 83605; 84702; 85025; 85610; 85730; 86140; 87040; 87070; 87077; 87081; 87186; 87205; 87426; 88307; 88311; 93005; 97110; 97116; 97161; 97530; 99285; A9575; J1200; J1644; J1815; J2185; J2250; J2270; J2405; J2543; J2704; J3010; J3370; J3490; J7030; J7040; J7050; J7060; J7120

== ENCOUNTER 2022-09-11 20:47 | Emergency (ER) | payer OTHER ==
[~2022-09-11] VITALS: Ht 177.8 cm; Wt 118.2 kg
[~2022-09-11 20:47] MED LIST: GABA-1181 PO; INSLAN SQ; LISI-892 PO; METF-1211 PO
[2022-09-11 22:40] VITALS: BP 122/65
[2022-09-11] MEDS ORDERED: LIDOCAINE 5% TRANSDERMAL PATCH TD ONE (23:00)
[2022-09-11] MEDS ORDERED: KETOROLAC TROMETHAMINE 30 MG/ML VIAL IM ONE (23:00)
[2022-09-11] MEDS ORDERED: ACETAMINOPHEN 500 MG TABLET PO ONE (23:00)
[2022-09-11 23:02] LABS: BASOPHILS % (AUTO) 0.8 % (0.0-2.0); HEMATOCRIT 29.5 % (36-46); HEMOGLOBIN 9.4 g/dL (12.0-16.0); LYMPHOCYTES # (AUTO) 3.2 K/uL (1.0-4.8); LYMPHOCYTES % (AUTO) 34.9 % (22.0-44.0); MEAN CORPUSCULAR HEMOGLOBIN 24.4 pg (26.0-34.0); MEAN CORPUSCULAR HGB CONC 31.9 G/dL (31.0-37.0); MEAN CORPUSCULAR VOLUME 76 fL (80-100); MONOCYTES # (AUTO) 0.7 K/uL (0.1-1.0); MONOCYTES % (AUTO) 8.1 % (2.0-9.0); NEUTROPHILS # (AUTO) 4.9 K/uL (1.8-7.7); NEUTROPHILS % (AUTO) 54.2 % (40.0-70.0); PLATELET COUNT (AUTO) 207 K/uL (150-450); RED BLOOD CELL COUNT(AUTO) 3.86 MIL/uL (4.00-5.20); RED CELL DISTRIBUTION WIDTH 15.6 % (11.5-14.5)
[2022-09-11 23:14] LABS: CALCIUM, TOTAL 8.9 mg/dL (8.8-10.5); CREATININE 1.1 mg/dL (0.60-1.30); POTASSIUM 4.7 mmol/L (3.5-5.1)
[2022-09-11 23:15] LABS: PROTHROMBIN TIME 10.5 SEC (9.4-11.6)
[2022-09-11 23:20] LABS: ALBUMIN 3.4 g/dL (3.4-5.0); BILIRUBIN,TOTAL 0.2 mg/dL (0.1-1.0); TOTAL PROTEIN, SERUM 6.7 g/dL (6.4-8.2)
== END 2022-09-12 01:09 ==
LOC: EMS 20:48
DX: M50.323 Other cervical disc degeneration at C6-C7 level (principal); M51.36 Other intervertebral disc degeneration, lumbar region; E78.00 Pure hypercholesterolemia, unspecified; E11.40 Type 2 diabetes mellitus with diabetic neuropathy, unspecified; I10 Essential (primary) hypertension; Z90.49 Acquired absence of other specified parts of digestive tract
CPT/HCPCS: 80053; 82962; 85025; 85610; 85730; 36415; 71045; 70450; 72125; 72131; 99285; 93005; 96372; J1885